=== PATIENT | male | born 1975 | race Caucasian/White ===

== ENCOUNTER 2017-01-28 19:08 | Emergency (ER) | payer OTHER ==
--- NOTE | 2017-01-28 19:12 | EDPHY ---
H & P Time Seen by Provider: 01/28/17 19:11 HPI/ROS: CHIEF COMPLAINT: Vomiting after alcohol consumption HISTORY OF PRESENT ILLNESS: The patient presents to the ED with complaints of intractable vomiting. The patient reportedly had a high volume of alcohol while playing golf today. He returned home and developed uncontrolled vomiting. The patient does have a history of binge alcohol use. He has a history of chronic abdominal pain and is on Nexium. The patient denies any fall or trauma. He does complain of some neck spasm from his vomiting. The patient has no complaints of headache, focal numbness or weakness. The patient reports mild epigastric abdominal pain. REVIEW OF SYSTEMS: A comprehensive 10 point review of systems is otherwise negative aside from elements mentioned in the history of present illness. Source: Patient Exam Limitations: No limitations - Medical/Surgical History Hx Asthma: Yes Hx Chronic Respiratory Disease: No Hx Diabetes: No Hx Cardiac Disease: No Hx Renal Disease: No Hx Cirrhosis: No Hx Alcoholism: No Hx HIV/AIDS: No Hx Splenectomy or Spleen Trauma: No Other PMH: Denies - Social History Smoking Status: Former smoker - Physical Exam Exam: General Appearance: Alert, retching, mild discomfort, anxious Eyes: Pupils equal and round no pallor or injection ENT, Mouth: Mucous membranes moist Respiratory: There are no retractions, lungs are clear to auscultation Cardiovascular: Regular rate and rhythm Gastrointestinal: Minimal epigastric tenderness Neurological: A&O, normal motor function, normal sensory exam, normal cranial nerves Skin: Warm and dry, no rashes Musculoskeletal: Neck is supple nontender Extremities: symmetrical, full range of motion Constitutional: Initial Vital Signs Temperature (C) 36.8 C 01/28/17 19:14 Heart Rate 63 01/28/17 19:14 Respiratory Rate 16 01/28/17 19:14 Blood Pressure 132/79 H 01/28/17 19:14 O2 Sat (%) 99 01/28/17 19:14 O2 Delivery Mode Room Air Allergies/Adverse Reactions: Penicillins Allergy (Verified 01/28/17 19:13) Home Medications: Medication Instructions Recorded Maxair 05/24/14 Nexium 05/24/14 Ondansetron Odt [Zofran Odt] 4 mg PO Q4PRN PRN #20 tab 01/28/17 Medical Decision Making ED Course/Re-evaluation: The patient had an IV established. He received 4 mg of Zofran. The patient received 2 L of normal saline. He also was complaining of some neck spasm and discomfort. He received 1 mg of Ativan for that condition. The patient is noted to have leukocytosis likely secondary to his vomiting. The patient's liver function tests are within normal limits. He has no evidence of acute pancreatitis with a normal lipase. The patient does have evidence of dehydration with a slightly decreased CO2 of 17. The patient had serial exams in the ED over a 2 hour period with improvement of his pain, retching and nausea. Patient was re-evaluated at 9:00 p.m.. He is feeling better. He is slightly sleepy after receiving IV Ativan. The patient will be discharged home with a prescription for Zofran. He is advised to curtail excessive use of alcohol. The patient should return to the ED for markedly worsening abdominal pain or other concerns. Differential Diagnosis: Differential diagnosis considered includes alcoholic gastritis, pancreatitis, peptic ulcer disease, perforation, obstruction, dehydration, metabolic abnormality - Data Points Laboratory Results: Laboratory Results 01/28/17 19:16 01/28/17 19:16 01/28/17 01/28/17 19:16 19:16 WBC 16.04 10^3/uL H 10^3/uL (3.80-9.50) RBC 5.80 10^6/uL 10^6/uL (4.40-6.38) Hgb 17.7 g/dL H g/dL (13.7-17.5) Hct 48.8 % % (40.0-51.0) MCV 84.1 fL fL (81.5-99.8) MCH 30.5 pg pg (27.9-34.1) MCHC 36.3 g/dL g/dL (32.4-36.7) RDW 13.7 % % (11.5-15.2) Plt Count 415 10^3/uL H 10^3/uL (150-400) MPV 9.8 fL fL (8.7-11.7) Neut % (Auto) 53.3 % % (39.3-74.2) Lymph % (Auto) 36.7 % % (15.0-45.0) [place] % (Auto) 7.0 % % (4.5-13.0) Eos % (Auto) 1.9 % % (0.6-7.6) Baso % (Auto) 0.4 % % (0.3-1.7) Nucleat RBC Rel Count 0.0 % % (0.0-0.2) Absolute Neuts (auto) 8.53 10^3/uL H 10^3/uL (1.70-6.50) Absolute Lymphs (auto) 5.88 10^3/uL H 10^3/uL (1.00-3.00) Absolute Monos (auto) 1.13 10^3/uL H 10^3/uL (0.30-0.80) Absolute Eos (auto) 0.31 10^3/uL 10^3/uL (0.03-0.40) Absolute Basos (auto) 0.07 10^3/uL 10^3/uL (0.02-0.10) Absolute Nucleated RBC 0.00 10^3/uL 10^3/uL (0-0.01) Immature Gran % 0.7 % % (0.0-1.1) Immature Gran # 0.12 10^3/uL H 10^3/uL (0.00-0.10) Sodium 144 mEq/L mEq/L (134-144) Potassium 3.9 mEq/L mEq/L (3.5-5.2) Chloride 106 mEq/L mEq/L (97-110) Carbon Dioxide 17 mEq/l L mEq/l (22-31) Anion Gap 21 mEq/L H mEq/L (8-16) BUN 8 mg/dL mg/dL (7-23) Creatinine 1.1 mg/dL mg/dL (0.7-1.3) Estimated GFR > 60 Glucose 97 mg/dL mg/dL (70-100) Calcium 10.3 mg/dL mg/dL (8.5-10.4) Lipase 167 IU/L IU/L (23-300) Ethyl Alcohol 214 mg/dL H mg/dL (0-10) Medications Given: Discontinued Medications Sodium Chloride (Ns) 1,000 mls @ 0 mls/hr IV ONCE ONE PRN Reason: Wide Open Stop: 01/28/17 19:25 Last Admin: 01/28/17 19:26 Dose: 1,000 mls Lorazepam (Ativan Injection) 1 mg IVP EDNOW ONE Stop: 01/28/17 19:57 Last Admin: 01/28/17 19:58 Dose: 1 mg Ondansetron HCl (Zofran) 4 mg IVP EDNOW ONE Stop: 01/28/17 19:25 Last Admin: 01/28/17 19:26 Dose: 4 mg Departure - Departure Disposition: Home, Routine, Self-Care Clinical Impression: Alcohol intoxication, Vomiting Condition: Good Instructions: Ondansetron (By mouth), Acute Nausea and Vomiting (ED) Additional Instructions: 1. I recommend avoiding excessive use of alcohol. 2. Please continue Nexium as prescribed. 3. Zofran as needed for nausea. 4. Return to the emergency department for markedly worsening symptoms or other concerns. Prescriptions: Ondansetron Odt [Zofran Odt] 4 mg PO Q4PRN PRN #20 tab PRN Reason: For Nausea
[2017-01-28 19:16] VITALS: RESP 16; TEMP 98.2
[2017-01-28] MEDS ORDERED: ONDANSETRON 4 MG/2 ML VIAL IVP ONE (19:24)
[2017-01-28] MEDS ORDERED: NS 1,000 ML IV ONE (19:24)
[2017-01-28] MEDS ORDERED: ONDANSETRON 4 MG/2 ML VIAL ONE (19:25)
[2017-01-28 19:31] LABS: PLATELET COUNT 415 10^3/uL (150-400)
[2017-01-28] MEDS ORDERED: LORazepam 2 MG/ML INJ ONE (19:55)
[2017-01-28] MEDS ORDERED: LORazepam 2 MG/ML INJ IVP ONE (19:56)
[2017-01-28] MEDS ORDERED: ONDANSETRON 4MG PREPACK#2 BTL TAKEHOME ONE (20:41)
[2017-01-28 21:13] VITALS: BP 128/73; PULSE 67; O2SAT 97
== END 2017-01-28 21:11 | disposition home or self-care (01) ==
LOC: EDUNIT#
DX: F10.129 Alcohol abuse with intoxication, unspecified (principal); R11.10 Vomiting, unspecified; J45.909 Unspecified asthma, uncomplicated; Z87.891 Personal history of nicotine dependence
CPT/HCPCS: 96374; G0480; J2060; J2405